=== PATIENT | female | born 1970 | race Caucasian/White ===

== ENCOUNTER 2016-10-14 13:56 | Outpatient (CLI) | payer OTHER ==
--- NOTE | 2016-10-14 14:46 | DIAGNOSTIC IMAGING REPORT ---
PROCEDURE: XR LUMBAR SPINE 2 OR 3 VIEWS INDICATION: Low back pain radiating to the right hip and thigh. TECHNIQUE: Three views of the lumbar spine COMPARISON: None. FINDINGS: Five lumbar-type vertebral bodies are present. Normal vertebral body height without fracture. Minor leftward curvature of the upper lumbar spine with slight rotational component. The AP alignment is normal. Disc spacing is normal. No significant endplate or facet joint degeneration. The visible osseous pelvis and bowel gas pattern are normal. Tubal ligation clips and umbilical jewelry are seen. IMPRESSION: 1. Minor upper lumbar rotoscoliosis.
--- NOTE | 2016-10-14 14:49 | DIAGNOSTIC IMAGING REPORT ---
PROCEDURE: XR HIP BILATERAL INDICATION: Radicular low back pain TECHNIQUE: AP view of the pelvis and hips with lateral view of each hip. COMPARISON: None. FINDINGS: RIGHT HIP: Normal mineralization. No fracture. Normal bony alignment. No unusual adjacent calcifications. LEFT HIP: Normal mineralization. No fracture. Normal bony alignment. No unusual adjacent calcifications. PELVIS: Normal mineralization. Pelvic rings are intact. No fractures. Normal alignment. The visible bowel gas pattern and pelvic soft tissues appear normal. IMPRESSION: 1. Intact hips and normal pelvis.
== END 2016-10-14 23:00 | disposition home or self-care (01) ==
LOC: XR SRH 13:56
DX: M41.86 Other forms of scoliosis, lumbar region (principal)

== ENCOUNTER 2016-11-15 17:39 | Outpatient (CLI) | payer OTHER ==
--- NOTE | 2016-11-15 17:54 | DIAGNOSTIC IMAGING REPORT ---
PROCEDURE: XR CHEST 2 VIEW INDICATION: SYNCOPE, UNSPECIFIED TYPE TECHNIQUE: PA and lateral views. COMPARISON: Compared to chest x-ray 03/31/2014. FINDINGS: Lungs are clear. Heart and mediastinum are normal. Thorax is normal. IMPRESSION: 1. Negative chest.
== END 2016-11-15 23:00 ==
LOC: XR SRH 17:39
DX: R55 Syncope and collapse (principal)